=== PATIENT | female | born 1950 | race Two or more races ===

== ENCOUNTER 2018-04-24 21:23 | Emergency (ER) | payer MEDICARE ==
[2018-04-24] MEDS ORDERED: IV NORMAL SALINE 1000ML BAG 1,000 ML IV (21:45)
[2018-04-24] MEDS ORDERED: diphenhydrAMINE 50 MG/ML VIAL IVP (21:45)
[2018-04-24] MEDS ORDERED: KETOROLAC 30 MG/ML INJ. IV (21:45)
[2018-04-24] MEDS ORDERED: ONDANSETRON PF 4 MG/2 ML VIAL. IV (21:45)
[2018-04-24] MEDS: IV NORMAL SALINE 1000ML BAG 1,000 ML IV (22:16)
[2018-04-24] MEDS: PROCHLORPERAZINE 10 MG/2 ML VIAL. IV (22:16)
[2018-04-24] MEDS: diphenhydrAMINE 50 MG/ML VIAL IVP (22:17)
[2018-04-24] MEDS: KETOROLAC 15 MG/ML VIAL. IV (23:37)
== END 2018-04-25 | disposition home or self-care (01) ==
LOC: ER 04-25
DX: J01.90 Acute sinusitis, unspecified (principal); E78.00 Pure hypercholesterolemia, unspecified
CPT/HCPCS: 70450; 70486; 71046; 96374; 96375; 99284-25; J0780; J1200; J1885; J7030